=== PATIENT | female | born 1980 | race Caucasian/White ===

== ENCOUNTER 2018-01-07 09:42 | Emergency (ER) | payer BC ==
[2018-01-07 09:51] VITALS: TEMP 98.4; BMI 37.5
[2018-01-07] MEDS ORDERED: SODIUM CHLORIDE 1,000 ML IV STA (10:16)
[2018-01-07] MEDS ORDERED: KETOROLAC TROMETHAMINE 30 MG/1 ML VIAL IVPUSH ONE (10:16)
[2018-01-07 10:21] LABS: URINE APPEARANCE CLEAR; URINE BILIRUBIN NEGATIVE (<2.0 mg/dL); URINE BLOOD 3+ (NEGATIVE); URINE COLOR LTYELLOW; URINE GLUCOSE (UA) NEGATIVE (NEGATIVE); URINE KETONE NEGATIVE (NEGATIVE); URINE LEUK ESTERASE NEGATIVE (NEGATIVE); URINE NITRITE NEGATIVE (NEGATIVE); URINE PROTEIN NEGATIVE (NEGATIVE); URINE UROBILINOGEN NEGATIVE mg/dL (0.2-1.0)
[2018-01-07] MEDS ORDERED: KETOROLAC TROMETHAMINE 30 MG/1 ML VIAL ONE (10:30)
[2018-01-07 10:32] LABS: EPI CELLS RARE /HPF (FEW); URINE HYALINE CAST 1 /lpf; URINE MUCUS RARE
--- NOTE | 2018-01-07 10:34 | PDOC ---
History of Present Illness - General Chief Complaint: Pain, Acute Stated Complaint: KIDNEY PAIN Time Seen by Provider: 01/07/18 10:01 History Source: Patient Exam Limitations: No Limitations - History of Present Illness Travel History: No Initial Comments: 01/07/18 10:34 37-year-old female presents to the emergency department complaining of right and left back pain radiating to her left flank area. Patient states symptoms began yesterday and have increased in severity causing sharp intermittent pain. Patient states history of renal colic with lithotripsy performed by Dr. Dr. Cori Rodriguez and states symptoms similar to kidney stones. Patient denies nausea vomiting fever or chills, hematuria, abdominal pain, change in bowel pattern, or recent travel. Patient states did not contact her urologist and came directly to the ER. Timing/Duration: reports: getting worse Quality: reports: moderate, sharpness Abdominal Pain Onset Location: reports: flank Pain Radiation: reports: back Activities at Onset: reports: none Aggravating Factors: improves with: None Alleviating Factors: improves with: None Past History - Travel Traveled outside of the country in the last 30 days: No - Past Medical History Allergies/Adverse Reactions: Allergies Allergy/AdvReac Type Severity Reaction Status Date / Time No Known Drug Allergies Allergy Verified 01/07/18 09:51 Home Medications: Ambulatory Orders NK [No Known Home Medication] 12/03/15 COPD: No Disorders: Yes (kidney stones) - Reproductive History Is Patient Now?: No - Suicide/Smoking/Psychosocial Hx Smoking History: Never smoked Have you smoked in the past 12 months: No Information on smoking cessation initiated: No Hx Alcohol Use: No Drug/Substance Use Hx: No Substance Use Type: None Hx Substance Use Treatment: No Patient Lives Alone: No Lives with/in: spouse/SO Review of Systems - Review of Systems Able to Perform ROS?: No Constitutional: No: Symptoms Reported HEENTM: No: Symptoms Reported Respiratory: No: Symptoms reported Cardiac (ROS): No: Symptoms Reported ABD/GI: No: Symptoms Reported : Yes: Frequency, Flank Pain, Urgency Musculoskeletal: No: Symptoms Reported Integumentary: No: Symptoms Reported Neurological: No: Symptoms reported Hematologic/Lymphatic: No: Symptoms Reported *Physical Exam - Vital Signs Last Vital Signs Temp Pulse Resp BP Pulse Ox 98.4 F 72 18 117/54 100 01/07/18 09:48 01/07/18 09:48 01/07/18 09:48 01/07/18 09:48 01/07/18 09:48 - Physical Exam General Appearance: Yes: Nourished, Appropriately Dressed. No: Apparent Distress HEENT: negative: Pale Conjunctivae Neck: positive: Supple Respiratory/Chest: positive: Lungs Clear, Normal Breath Sounds. negative: Respiratory Distress, Accessory Muscle Use Cardiovascular: positive: Regular Rhythm, Regular Rate. negative: Murmur Gastrointestinal/Abdominal: positive: Soft, Tenderness (left flank) Musculoskeletal: positive: CVA Tenderness (R), CVA Tenderness (L) Extremity: positive: Normal Capillary Refill. negative: Pedal Edema Integumentary: positive: Normal Color, Warm, Moist Neurologic: positive: Motor Strength 5/5 (ambulatory) ED Treatment Course - LABORATORY CBC & Chemistry Diagram: 01/07/18 11:37 01/07/18 10:29 - ADDITIONAL ORDERS Additional order review: Laboratory Results 01/07/18 10:07 Urine HCG, Qual Negative - RADIOLOGY Radiology Studies Ordered: Category Date Time Status PELVIC / BLADDER US [US] Stat Ultrasound 01/07/18 10:16 Ordered Medical Decision Making - Medical Decision Making 01/07/18 10:37 Patient with sudden onset of left flank pain from yesterday stating that radiates to her right and left back over her kidneys. Patient has history of renal colic with a lithotripsy performed by Dr. Dr. Posada. Patient has no other complaints at this time. Patient ordered for CBC, comp, lipase, urinalysis urine IV fluids, IV Toradol and renal ultrasound. 01/07/18 10:59 Laboratory Tests 01/07/18 01/07/18 10:07 10:07 Urine Blood 3+ H Ur Leukocyte Esterase Negative Urine WBC (Auto) 4 Urine RBC (Auto) 79 Urine HCG, Qual Negative 01/07/18 14:34 No hydronephrosis. Multiple echogenic foci in both kidneys measuring up to 9 mm in the lower pole of the left kidney are most likely nonobstructing nephrolithiasis. There is normal and symmetric flow related Doppler signal within the renal sinuses. Noted 1.8 x 2 x 1.9 cm cyst in the upper pole of the right kidney. Patient requesting something for pain. Patient be ordered for Percocet and discharged home with the same along with Flomax. Patient to follow up with Dr. Gamble. *DC/Admit/Observation/Transfer Diagnosis at time of Disposition: Renal colic on left side - Discharge Dispostion Disposition: HOME Condition at time of disposition: Good - Referrals - Patient Instructions Printed Discharge Instructions: DI for Kidney Stones Additional Instructions: Please take at least 2 L of water, take Flomax, and take Percocet as needed for discomfort. Please also contact Dr. Dr. Posada. May return to ED if symptoms worsen. - Post Discharge Activity
[2018-01-07 11:15] LABS: ALBUMIN 3.5 g/dl (3.4-5.0); ANION GAP 4 (8-16); BLOOD UREA NITROGEN 11 mg/dL (7-18); CALCIUM 8.9 mg/dL (8.5-10.1); CHLORIDE 110 mmol/L (98-107); CO2 26 mmol/L (21-32); CREATININE 0.7 mg/dL (0.55-1.02); GLUCOSE,RANDOM 83 mg/dL (74-106); POTASSIUM 4.1 mmol/L (3.5-5.1); SGOT/AST 10 U/L (15-37); SGPT/ALT 14 U/L (12-78); SODIUM 140 mmol/L (136-145)
[2018-01-07 11:17] LABS: ALK PHOS 121 U/L (45-117); BILIRUBIN,TOTAL < 0.1 mg/dL (0.2-1.0); LIPASE 315 U/L (73-393); TOT PROT 7.2 g/dl (6.4-8.2)
[2018-01-07 11:52] LABS: BASO % 0.6 % (0-2.0); EOS % 0.1 % (0-4.5); HEMATOCRIT 38.3 % (32.4-45.2); HEMOGLOBIN 12.4 GM/dL (10.7-15.3); LYMPH % 25.3 % (8-40); MCH 27.4 pg (25.7-33.7); MCHC 32.5 g/dl (32.0-36.0); MEAN CELL VOLUME 84.5 fl (80-96); MEAN PLT VOLUME 8.2 fl (7.5-11.1); MONO % 7.2 % (3.8-10.2); NEUT % 66.8 % (42.8-82.8); PLATELET COUNT 240 K/MM3 (134-434); RBC 4.53 M/mm3 (3.60-5.2); RDW 15.2 % (11.6-15.6); WHITE BLOOD COUNT 7.5 K/mm3 (4.0-10.0)
[2018-01-07] MEDS ORDERED: ACETAMINOPHEN 325 MG TABLET (FP) PO ONE (14:37)
[2018-01-07] MEDS ORDERED: ACETAMINOPHEN 325 MG TABLET (FP) ONE (14:39)
[2018-01-07 14:44] VITALS: BP 124/71; PULSE 74
== END 2018-01-07 14:44 | disposition home or self-care (01) ==
LOC: JER 09:42
PROC: 3E0333Z Introduction of Anti-inflammatory into Peripheral Vein, Percutaneous Approach (ICD-10-PCS; principal; 2018-01-07)
DX: N20.0 Calculus of kidney (principal); Z87.442 Personal history of urinary calculi
CPT/HCPCS: 36415; 76775-TC; 80053; 81003; 81015; 83690; 84703; 85025; 87086; 87186; 99283-25; J7030

== ENCOUNTER 2018-01-25 05:21 | Day surgery (SDC) | payer BC ==
[2018-01-22 17:03] VITALS: BMI 42.0
[2018-01-25] MEDS ORDERED: ONDANSETRON 4 MG/2 ML VIAL IVPUSH PRN (16:31)
[2018-01-25] MEDS ORDERED: oxyCODONE HCL 5 MG TABLET PO PRN (16:31)
[2018-01-25] MEDS ORDERED: PROMETHAZINE HCL 25 MG/1 ML VIAL IVPUSH PRN (16:31)
[2018-01-25] MEDS ORDERED: LACTATED RINGERS SOLUTION 1,000 ML IV SCH (16:45)
[2018-01-25] MEDS ORDERED: MIDAZOLAM HCL 2 MG/2 ML SINGLE DOSE VIAL ONE ×2 (16:53→16:56)
[2018-01-25] MEDS ORDERED: fentaNYL CITRATE 250 MCG/5 ML VIAL ONE (16:53)
--- NOTE | 2018-01-25 17:28 | OP ---
Operative Note - Note: Operative Date: 01/25/18 Pre-Operative Diagnosis: Right kidney stone Operation: Right ESWL Findings: 5 mm mid pole kidney stone Right Surgeon: Amandeep Posada Anesthesia: Fractional
[2018-01-25 18:15] VITALS: BP 108/72; PULSE 71; TEMP 97.5
--- NOTE | 2018-01-26 00:48 | OP ---
DATE OF OPERATION: 01/25/2018 PREOPERATIVE DIAGNOSIS: Right renal stone. POSTOPERATIVE DIAGNOSIS: Right renal stone. PROCEDURE: Right extracorporeal shock wave lithotripsy. ATTENDING: Hector Truong M.D. ANESTHESIA: Fractional. OPERATION: The patient was brought to the operating room, placed in the supine position on the operating room table. Ultrasonography and fluoroscopy were performed. A 5-mm right midpole stone was identified. At this point anesthesia and preoperative antibiotics were administered. The patient then underwent extracorporeal shock wave lithotripsy 2500 impulses at 17 Joules of power administered to the stone with excellent fragmentation noted under real-time ultrasonography and fluoroscopy. No complications noted. DISPOSITION: Patient was to recovery room. HECTOR TRUONG M.D. [id number]
== END 2018-01-25 18:40 | disposition home or self-care (01) ==
LOC: JASU-SURG 05:21
PROVIDERS: ATTEND Urology
PROC: 0TF3XZZ Fragmentation in Right Kidney Pelvis, External Approach (ICD-10-PCS; principal; 2018-01-25 15:30)
DX: N20.0 Calculus of kidney (principal)
CPT/HCPCS: 84703

== ENCOUNTER 2018-02-08 08:11 | Day surgery (SDC) | payer BC ==
[2018-02-03 12:03] VITALS: BMI 42.0
[2018-02-08] MEDS ORDERED: MIDAZOLAM HCL 2 MG/2 ML SINGLE DOSE VIAL ONE (11:03)
--- NOTE | 2018-02-08 11:35 | OP ---
Operative Note - Note: Operative Date: 02/08/18 Pre-Operative Diagnosis: Left Kidney stone Operation: Left ESWL Findings: 5 mm & 3 mm Left mid pole kidney stone Post-Operative Diagnosis: Same as Pre-op Surgeon: Amandeep Posada Anesthesia: Fractional
[2018-02-08 13:45] VITALS: BP 113/80; PULSE 74; TEMP 98.3
== END 2018-02-08 13:46 | disposition home or self-care (01) ==
LOC: JASU-SURG 08:11
PROVIDERS: ATTEND Urology
PROC: 0TF4XZZ Fragmentation in Left Kidney Pelvis, External Approach (ICD-10-PCS; principal; 2018-02-08 10:15)
DX: N20.0 Calculus of kidney (principal)
CPT/HCPCS: 84703

== ENCOUNTER 2018-12-27 11:29 | Day surgery (SDC) | payer BC ==
[2018-12-24 10:50] VITALS: BMI 40.3
[2018-12-27 12:45] VITALS: TEMP 98.5
[2018-12-27] MEDS ORDERED: PROPOFOL 20 ML ONE (13:17)
[2018-12-27] MEDS ORDERED: MIDAZOLAM HCL 2 MG/2 ML SINGLE DOSE VIAL ONE (13:17)
[2018-12-27] MEDS ORDERED: KETOROLAC TROMETHAMINE 30 MG/1 ML VIAL ONE ×2 (14:07→14:12)
--- NOTE | 2018-12-27 14:32 | OP ---
Operative Note - Note: Operative Date: 12/27/18 Pre-Operative Diagnosis: R renal stone Operation: Right ESWL Findings: 5 mm mid pole Right renal stone Post-Operative Diagnosis: Same as Pre-op Surgeon: Amandeep Posada Anesthesia: Fractional Estimated Blood Loss (mls): 0 Operative Report Dictated: Yes
[2018-12-27 15:43] VITALS: BP 132/75; PULSE 74
--- NOTE | 2018-12-27 23:24 | OP ---
DATE OF OPERATION: 12/27/2018 PREOPERATIVE DIAGNOSIS: Right renal stone. POSTOPERATIVE DIAGNOSIS: Right renal stone. PROCEDURE: Extracorporeal shockwave lithotripsy. ATTENDING: Hector Posada M.D. ANESTHESIA: Fractional. DESCRIPTION OF PROCEDURE: Patient was brought in the operating room, placed in a supine position on the operating room table. Ultrasonography and fluoroscopy were performed. A 5-mm right mid pole stone was identified. Anesthesia was administered as were preoperative antibiotics. Shockwave lithotripsy was then performed. The patient tolerated the procedure very well. DISPOSITION: To recovery room. HECTOR TRUONG M.D. [id number]
== END 2018-12-27 16:05 | disposition home or self-care (01) ==
LOC: JASU-SURG 11:29
PROVIDERS: ATTEND Urology
PROC: 0TF3XZZ Fragmentation in Right Kidney Pelvis, External Approach (ICD-10-PCS; principal; 2018-12-27 14:45)
DX: N20.0 Calculus of kidney (principal)
CPT/HCPCS: 84703

== ENCOUNTER 2019-05-29 16:30 | Emergency (ER) | payer BC ==
[2019-05-29 16:42] VITALS: BP 135/80; PULSE 96; TEMP 98.9; BMI 43.6
[2019-05-29] MEDS ORDERED: KETOROLAC TROMETHAMINE 30 MG/1 ML VIAL IVPUSH ONE (19:27)
[2019-05-29] MEDS ORDERED: SODIUM CHLORIDE 0.9% 500 ML INFUS.BAG IV ONE (19:27)
--- NOTE | 2019-05-29 19:33 | PDOC ---
History of Present Illness - General Chief Complaint: Vaginal Bleeding Stated Complaint: VAGINAL BLEEDING History Source: Patient Exam Limitations: No Limitations - History of Present Illness Initial Comments: 05/29/19 19:29 Patient is a 39 years with h/o kidney stone c/o vaginal bleeding x 4 days. Patient states the has been bleeding intermittently since February mostly spotting but for the past 4 days changing >1 pad per hours, (+) passing clots. States she has been getting dizziness - spinning since yesterday pm. Has cramping lower abd, 05/31, intermittent with no alleviating or aggravating. Took tylenol without relief. States she was seen by [facility] 2 months, and was informed that the bleeding is normal PEACE OFFICER: [address] PMHX: as above PSOCHX: neg cig, neg etoh, neg drug ALL: NKDA GENERAL/CONSTITUTIONAL: No fever or chills. No weakness. No weight change. HEAD, EYES, EARS, NOSE AND THROAT: No change in vision. No ear pain or discharge. No sore throat. CARDIOVASCULAR: No chest pain or shortness of breath. RESPIRATORY: No cough, wheezing, or hemoptysis. GASTROINTESTINAL: No nausea, vomiting, diarrhea or constipation. No rectal bleeding. GENITOURINARY: No dysuria, frequency, or change in urination. MUSCULOSKELETAL: No joint or muscle swelling or pain. No neck or back pain. SKIN AND BREASTS: No rash or easy bruising. NEUROLOGIC: No headache, vertigo, loss of consciousness, or loss of sensation. PSYCHIATRIC: No depression or anxiety. ENDOCRINE: No increased thirst. No abnormal weight change. HEMATOLOGIC/LYMPHATIC: No anemia, easy bleeding, or history of blood clots. ALLERGIC/IMMUNOLOGIC: No hives or skin allergy. No latex allergy. GENERAL: The patient is awake, alert, and fully oriented, in no acute distress. HEAD: Normal with no signs of trauma. EYES: Pupils equal, round and reactive to light, extraocular movements intact, sclera anicteric, conjunctiva clear. ENT: Ears normal, nares patent, oropharynx clear without exudates. Moist mucous membranes. NECK: Normal range of motion, supple without lymphadenopathy, JVD, or masses. LUNGS: Breath sounds equal, clear to auscultation bilaterally. No wheezes, and no crackles. HEART: Regular rate and rhythm, normal S1 and S2 without murmur, rub. ABDOMEN: Soft, (+) tenderness lower abd, normoactive bowel sounds. No guarding , no rebound. No masses. PELVIC: normal external genitalia, small amount of dark blood in the vault, clots noted. EXTREMITIES: Normal range of motion, no edema. No clubbing or cyanosis. No cords, erythema, or tenderness. NEUROLOGICAL: Cranial nerves II through XII grossly intact. Normal speech, normal gait. PSYCH: Normal mood, normal affect. SKIN: Warm, Dry, normal turgor, no rashes or lesions noted. Past History - Past Medical History Allergies/Adverse Reactions: Allergies Allergy/AdvReac Type Severity Reaction Status Date / Time No Known Drug Allergies Allergy Verified 05/29/19 16:37 Home Medications: Ambulatory Orders Acetaminophen [Tylenol] 325 mg PO PRN PRN 12/27/18 Anemia: No Asthma: No Cancer: No Cardiac Disorders: No CVA: No COPD: No CHF: No Dementia: No Diabetes: No GI Disorders: No Disorders: Yes (kidney stones) HTN: No Hypercholesterolemia: No Liver Disease: No Seizures: No Thyroid Disease: No - Surgical History Abdominal Surgery: No Appendectomy: No Cardiac Surgery: No Cholecystectomy: No Lung Surgery: No Neurologic Surgery: No Orthopedic Surgery: No - Suicide/Smoking/Psychosocial Hx Smoking History: Never smoked Have you smoked in the past 12 months: No Hx Alcohol Use: No Drug/Substance Use Hx: No Substance Use Type: None Hx Substance Use Treatment: No *Physical Exam - Vital Signs Last Vital Signs Temp Pulse Resp BP Pulse Ox 98.9 F 96 H 78 H 135/80 99 05/29/19 16:35 05/29/19 16:35 05/29/19 16:35 05/29/19 16:35 05/29/19 16:35 ED Treatment Course - LABORATORY CBC & Chemistry Diagram: 05/29/19 20:05 05/29/19 20:05 Medical Decision Making - Medical Decision Making 05/29/19 19:29 Patient is a 39 years with h/o kidney stone c/o vaginal bleeding x 4 days. Patient states the has been bleeding intermittently since February mostly spotting but for the past 4 days changing >1 pad per hours. States she has been getting dizzines - spinning since yesterday pm. Has cramping lower abd, 05/31, intermittent with no alleviating or aggravating. Took tylenol without relief. Symptoms consistent with DUB now have dizziness will rule out , fibroids Labs included CBC check H&H IVF Pelvic ultrasound for fibroids reassess 05/29/19 22:11 Lab work with no acute findings. Pain relief from the Toradol given. She is sitting comfortably on the stretcher. 05/29/19 22:58 Patient Full Name: STEVEN MI Patient Accession No: [id number] Patient : 1980 Reason for Exam: vag bleeding Referring Physician: Patient Name: SHMUEL HARRIS THIS IS A PRELIMINARY REPORT FROM [facility] DATE OF SERVICE: 2019-05-29 20:45:49 IMAGES: 49 EXAM: PELVIC / BLADDER US HISTORY: 39-year-old female with vaginal bleeding. Transabdominal and transvaginal imaging of the pelvis obtained. Grayscale, color flow Doppler images provided. COMPARISON: None.. Pelvic ultrasound in May 2019. Findings: Uterus measures 10.1 x 5.5 x 5.7 cm. Endometrial stripe thickness 4.4 mm; defined with transvaginal imaging sagittal plane. Multiple nabothian cysts noted in the region of the cervix. No free fluid within the cul-de-sac in the pelvis. Right ovary measures 2.0 x 2.6 x 1.9 cm. There is a 1.3 x 1.0 x 1.0 cm right ovarian cyst. Color flow Doppler arterial and venous signals in the right ovary demonstrated. Left ovary not visualized. No adnexal masses appreciated. Impression: 1.. Endometrial stripe thickness 4.4 mm. 2. Left ovary not visualized, due to overlying bowel gas. 3. 1.3 x 1.0 x 1.0 cm cyst right ovary. THIS DOCUMENT HAS BEEN ELECTRONICALLY SIGNED Emanuel Simental MD 05/29/2019 22:55 EST [place]. Please call [facility] [phone] ([phone] with questions. INTERPRETING RADIOLOGIST: Emanuel Simental MD Electronically Signed: May 29, 2019 10:56PM EDT I discussed the physical exam findings, ancillary test results and final diagnoses with the patient. I answered all of the patient's questions. The patient was satisfied with the care received and felt comfortable with the discharge plan and treatment plan. The Patient agrees to follow up with the primary care physician within 24-72 hours. Findings of the ultrasound was discussed with the patient and the need to follow up with *DC/Admit/Observation/Transfer Diagnosis at time of Disposition: Dysfunctional uterine bleeding Diagnosis at time of Disposition: (Ruled Out): Functional uterine bleeding - Discharge Dispostion Disposition: HOME Condition at time of disposition: Stable - Referrals - Patient Instructions Printed Discharge Instructions: DI for Vaginal Bleeding Additional Instructions: Your Discharge Instructions: You must call primary care physician within 24 hours to arrange follow-up. Return to the Emergency Department with any new, persistent or worsening symptoms, for fever, chills, SOB, dizziness or any other concerning changes that may occur. - Post Discharge Activity
[2019-05-29] MEDS ORDERED: KETOROLAC TROMETHAMINE 30 MG/1 ML VIAL ONE (20:15)
[2019-05-29 20:21] LABS: HEMATOCRIT 38.8 % (32.4-45.2); HEMOGLOBIN 12.2 GM/dL (10.7-15.3); MCH 26.6 pg (25.7-33.7); MCHC 31.6 g/dl (32.0-36.0); MEAN CELL VOLUME 84.4 fl (80-96); MEAN PLT VOLUME 8.6 fl (7.5-11.1); PLATELET COUNT 325 K/MM3 (134-434); RBC 4.59 M/mm3 (3.60-5.2); RDW 15.1 % (11.6-15.6); WHITE BLOOD COUNT 8.6 K/mm3 (4.0-10.0)
[2019-05-29 20:38] LABS: CALCIUM 9.6 mg/dL (8.5-10.1); CREATININE 0.8 mg/dL (0.55-1.3); POTASSIUM 4.2 mmol/L (3.5-5.1)
== END 2019-05-29 23:12 | disposition home or self-care (01) ==
LOC: JER 16:30
PROC: 3E0333Z Introduction of Anti-inflammatory into Peripheral Vein, Percutaneous Approach (ICD-10-PCS; principal; 2019-05-29)
PROC: 3E0337Z Introduction of Electrolytic and Water Balance Substance into Peripheral Vein, Percutaneous Approach (ICD-10-PCS; 2019-05-29)
DX: N93.8 Other specified abnormal uterine and vaginal bleeding (principal); N83.201 Unspecified ovarian cyst, right side; R93.89 Abnormal findings on diagnostic imaging of other specified body structures
CPT/HCPCS: 36415; 76830-TC; 76856-TC; 80048; 84702; 85027; 86850; 86900; 86901; 99283-25

== ENCOUNTER 2019-07-01 05:16 | Day surgery (SDC) | payer BC ==
[2019-06-24 08:17] VITALS: BMI 42.0
[2019-07-01] MEDS ORDERED: PROPOFOL 20 ML ONE ×2 (07:16)
[2019-07-01] MEDS ORDERED: MIDAZOLAM HCL 2 MG/2 ML SINGLE DOSE VIAL ONE (07:16)
[2019-07-01] MEDS ORDERED: SUCCINYLCHOLINE CHLORIDE 200 MG/10 ML SYRINGE ONE (07:16)
--- NOTE | 2019-07-01 07:43 | HP ---
Admitting History and Physical - Admission Chief Complaint: Abnormal uterine bleeding History of Present Illness: 39 yo with h/o abnormal bleeding, is pre op for hysteroscopic endometrial ablation. History Source: Patient Limitations to Obtaining History: No Limitations - Past Medical History ...LMP: 12/22/18 ...LMP Comment: bleeding since february ...: No - Past Surgical History Past Surgical History: Yes: None - Smoking History Smoking history: Never smoked Have you smoked in the past 12 months: No - Alcohol/Substance Use Hx Alcohol Use: No Home Medications - Allergies Allergies/Adverse Reactions: Allergies Allergy/AdvReac Type Severity Reaction Status Date / Time No Known Drug Allergies Allergy Verified 06/24/19 08:17 - Home Medications Home Medications: Ambulatory Orders NK [No Known Home Medication] 06/24/19 Family Medical History Family History: Unremarkable Review of Systems - Review of Systems Constitutional: reports: No Symptoms Eyes: reports: No Symptoms HENT: reports: No Symptoms Neck: reports: No Symptoms Cardiovascular: reports: No Symptoms Respiratory: reports: No Symptoms Gastrointestinal: reports: No Symptoms Genitourinary: reports: No Symptoms Breasts: reports: No Symptoms Reported Musculoskeletal: reports: No Symptoms Integumentary: reports: No Symptoms Neurological: reports: No Symptoms Endocrine: reports: No Symptoms Hematology/Lymphatic: reports: No Symptoms Psychiatric: reports: No Symptoms Pain Intensity: 0 Physical Examination Vital Signs: Vital Signs Temperature 99.0 F 07/01/19 06:56 Pulse Rate 78 07/01/19 06:56 Respiratory Rate 20 07/01/19 06:56 Blood Pressure 105/71 07/01/19 06:56 O2 Sat by Pulse Oximetry (%) 98 07/01/19 06:56 Constitutional: Yes: Well Nourished Eyes: Yes: Conjunctiva Clear HENT: Yes: Atraumatic Neck: Yes: Supple Cardiovascular: Yes: Regular Rate and Rhythm Respiratory: Yes: Regular Gastrointestinal: Yes: Normal Bowel Sounds ...Rectal Exam: Yes: WNL Renal/: Yes: WNL Breast(s): Yes: WNL Musculoskeletal: Yes: WNL Wound/Incision: Yes: Well Approximated Neurological: Yes: Alert, Oriented Psychiatric: Yes: Alert, Oriented Assessment/Plan Menorrhagia Pre op for endometrial ablation Consent signed Anesthesia to see patient
--- NOTE | 2019-07-01 08:42 | OP ---
Operative Note - Note: Operative Date: 07/01/19 Pre-Operative Diagnosis: Menorrhagia Operation: Hysteroscopic endometrial ablation Post-Operative Diagnosis: Same as Pre-op Surgeon: Keiko Ann Anesthesia: General Specimens Removed: None Estimated Blood Loss (mls): 10 Operative Report Dictated: Yes
[2019-07-01] MEDS ORDERED: ONDANSETRON 4 MG/2 ML VIAL IVPUSH PRN (09:55)
[2019-07-01] MEDS ORDERED: oxyCODONE HCL 5 MG TABLET PO PRN (09:55)
[2019-07-01] MEDS ORDERED: LACTATED RINGERS SOLUTION 1,000 ML IV SCH (10:00)
--- NOTE | 2019-07-01 11:11 | OP ---
DATE OF OPERATION: 07/01/2019 PREOPERATIVE DIAGNOSIS: Abnormal uterine bleeding. POSTOPERATIVE DIAGNOSIS: Abnormal uterine bleeding. PROCEDURE: Hysteroscopic endometrial ablation. SURGEON: Keiko Ann MD ANESTHESIA: General. COMPLICATIONS: None. ESTIMATED BLOOD LOSS: 10 mL. DESCRIPTION OF PROCEDURE: Patient was taken to the operating room where general anesthesia was administered. Patient was then placed in lithotomy position. She was then prepped and draped in proper sterile fashion. A weighted speculum was placed in the vagina. The anterior lip of the cervix was grasped with a single-tooth tenaculum and the machine was then activated. Upon indicated, the hysteroscope was gently introduced into the uterine cavity, and a diagnostic hysteroscopy was performed. Upon completion of the diagnostic hysteroscopy, the cervical os was sealed using 2 sweethearts and 2 wet gauze on the posterior vagina. Then the ablation was initiated. This procedure continued until complete blanching of the uterine cavity for approximately 15 minutes. When directed, the instruments were removed. The patient was taken out of lithotomy position. She was taken to PACU in stable condition. KEIKO ANN M.D. [id number] MTDD
[2019-07-01 18:05] VITALS: BP 132/80; PULSE 72; TEMP 97.5
== END 2019-07-01 12:20 | disposition home or self-care (01) ==
LOC: JASU-SURG 05:16
PROVIDERS: ATTEND Obstetrics & Gynecology
PROC: 0U5B8ZZ Destruction of Endometrium, Via Natural or Artificial Opening Endoscopic (ICD-10-PCS; principal; 2019-07-01 07:30)
DX: N93.9 Abnormal uterine and vaginal bleeding, unspecified (principal)
CPT/HCPCS: 84703; 94760